=== PATIENT | female | born 1955 | race Caucasian/White ===

== ENCOUNTER 2023-04-08 08:56 | Day surgery (SDC) | payer OTHER, MEDICARE, SELFPAY ==
[2023-04-07 07:39] VITALS: BMI 20.8
[2023-04-08] VITALS (10 sets, daily range): BP systolic 98–146; BP diastolic 52–78; PULSE 59–80; RESP 11–17; TEMP 36.2–36.6; O2SAT 95–100; BMI 20.8; BMI 20.9
[2023-04-08] MEDS: LACTATED RINGERS 1,000 ML 100 ML IV ×4 (09:13→15:32)
--- NOTE | 2023-04-08 10:17 | PM.PREOP ---
Pre-operative Note COVID-19 Criteria for continued procedure: Delay expected to result in less-positive ultimate med/surg outcome Interval Note History & Physical reviewed/Exam performed by Physician: Yes Changes to H&P: No H&P completed within 30 days and has changed as indicated here:: 03/24/23
[2023-04-08] MEDS: CEFAZOLIN 2 GM/100 ML PREMIX 100 ML IV (11:04)
--- NOTE | 2023-04-08 11:14 | SUR.OPER ---
Lithotomy on padded OR bed, head on pillow, arms secured on padded arm boards at <90 degrees abduction. Legs secured in padded yellow fins stirrups.
[2023-04-08] MEDS: BUPIVACAINE 0.25% (PF) 30 ML, EPINEPHrine 0.15 MG INJ (11:19)
--- NOTE | 2023-04-08 13:10 | P.OP_ITS ---
Operative Date/Time/Diagnoses Date of procedure: 04/08/23 Time of procedure: 13:10 Pre-op diagnosis: Symptomatic cystocele and rectocele Post-op diagnosis: same Procedure & Clinicians Procedure: Procedures Operation Date: 04/08/23 10:45 Actual Procedure Side Surgeon p Anterior/Posterior repair Lorrie Ching MD Indications: Symptomatic cystocele and rectocele Surgeon: Lorrie Ching Ticket Machine Operator: Kriss Lake Anesthesia Type: General and Local Operative Notes Findings: Third degree cystocele Third degree rectocele Closure Type: primary Specimen(s): none Estimated blood loss (mL): 50 Blood products transfused: none Procedure in detail: 2 Allis clamps were placed at the apex of the cystocele. 6 mL of half percent Marcaine with epinephrine were injected and an incision was made with a #10 blade between the 2 Allis clamps. Wide Allis clamps were placed on the midline of the cystocele approximately 5. The mucosa was undermined using the Metzenbaum scissors and the mucosa incised in the midline moving the wide Allis clamps to the edges of the mucosa. The mucosa was dissected off the underlying fascia using an open moistened Ray-Angel Luis and a #10 blade. The fascia was reapproximated with 0 Vicryl with a series of horizontal mattress sutures. The excess vaginal mucosa was excised. The mucosa was closed using simple interrupted sutures with 2-0 Vicryl including the underlying fascia to close the space. The weighted speculum was removed from the vagina. Allis clamps were placed at the mucocutaneous junction at the introitus. 6 mL of half percent Marcaine with epinephrine were injected. An incision was made with a #10 blade between the 2 Allis clamps, and a triangular piece of skin and underlying subcutaneous tissue was removed. Allis clamps were placed in the midline of the rectocele. 10 mL of half percent Marcaine with epinephrine were injected submucosally. The mucosa was undermined using the Metzenbaum scissors and the mucosa incised in the midline, moving the wide Allis clamps to the mucosal edges. The underlying fascia was dissected off of th mucosa using an open moistened Ray-Angel Luis and a #10 blade. The fascia was reapproximated using 0 Vicryl with a series of horizontal mattress sutures. The excess vaginal mucosa was excised. The mucosa was closed using a series of simple interrupted sutures with 2-0 Vicryl including the underlying fascia to close the space. On the perineum 0 Vicryl was used to reapproximate the levator muscle. The subcutaneous layer was closed with 2-0 Vicryl. The skin was closed with 2-0 chromic in a subcuticular fashion. Hemostasis was achieved. A Betadine moistened vaginal pack was placed into the vagina. A rectal exam was done and there were no sutures palpable in the rectum. The urine was clear. Sponge, lap, and instrument counts were correct x-2. The patient tolerated the procedure well, was taken to PACU in stable condition.m Complications: none Post-operative Condition: stable Disposition: PACU Plan for aftercare: To acute care after recovery
[2023-04-08] MEDS: OXYCODONE IR 5 MG TABLET PO (16:30)
[2023-04-08] MEDS: ACETAMINOPHEN 325 MG TABLET 650 MG PO ×2 (16:31→20:14)
[2023-04-08] MEDS: KETOROLAC 30 MG/ML VIAL 15 MG IV ×2 (19:35→23:55)
--- NOTE | 2023-04-08 19:37 | PC.NURSE ---
Patient arrived from PACU at 1310 A&OX4, slightly sleepy, VSS, afebrile on RA. She reports pain well controlled. scant bleeding to pad. She tolerates dinner well and reports pain well controlled. LR at 100ml/hr. knowles in place draining adequate clear yellow urine.
[2023-04-08] MEDS: ONDANSETRON 4 MG/2 ML INJ IV (20:14)
[2023-04-08] MEDS: DOCUSATE 100 MG CAPSULE 200 MG PO (20:14)
[2023-04-09 00:06] VITALS: BP 108/48; PULSE 60; RESP 17; TEMP 36.5; O2SAT 93
[2023-04-09 06:14] VITALS: BP 124/67; PULSE 48; RESP 18; TEMP 37; O2SAT 97
[2023-04-09] MEDS: ONDANSETRON 4 MG/2 ML INJ IV (06:17)
[2023-04-09] MEDS: LEVOTHYROXINE 25 MCG TABLET PO (06:18)
[2023-04-09] MEDS: KETOROLAC 30 MG/ML VIAL 15 MG IV (06:18)
[2023-04-09 06:37] LABS: Add Manual Diff / Slide Review NO; Basophils Absolute Auto 0 /uL (0-100); Basophils Percent Auto 0.2 % (0-2); Eosinophils Absolute Auto 0 /uL (0-450); Eosinophils Percent Auto 0.1 % (2-4); Hematocrit 29.6 % (36-46); Hemoglobin 10.2 g/dL (12.0-16.0); Lymphocytes Absolute Auto 2200 /uL (1100-4500); Lymphocytes Percent Auto 23.3 % (25-40); Mean Corpuscular HGB Conc 34.6 % (30-36); Mean Corpuscular Volume 89.6 fL (80-100); Monocytes Absolute Auto 800 /uL (0-900); Monocytes Percent Auto 8.2 % (3-14); Neutrophils Absolute Auto 6300 /uL (1500-7000); Neutrophils Percent Auto 68.2 % (50-75); Platelet Count 168 X10^3/uL (150-400); Red Cell Distribution Width 14.1 % (11.6-14.8); White Blood Cell Count 9.2 X10^3/uL (4.5-11.0)
--- NOTE | 2023-04-09 07:00 | PC.NURSE ---
Hernandez catheter DC'd at 0555, vaginal packing removed. Packing held a moderate amount of sanguinous drainage, no bleeding or discharge observed immediately upon removal.
[2023-04-09] MEDS: DOCUSATE 100 MG CAPSULE 200 MG PO (08:36)
[2023-04-09] MEDS: ACETAMINOPHEN 325 MG TABLET 650 MG PO (08:36)
[2023-04-09 08:53] VITALS: BP 153/84; PULSE 72; RESP 16; TEMP 36.4; O2SAT 97
--- NOTE | 2023-04-09 09:30 | CM.DANOTE ---
DCP: Case received, EMR reviewed and met with patient. Introduced self and role. Was able to complete DCP assessment based upon information currently available. Patient is a 67 year old female who admitted yesterday morning to the care of Dr. Ching. PCP: Dr. Forde. Payer: confirmed: [facility]. Patient came to the hospital via private vehicle for a surgical procedure. Patient had anterior/posterior repair cystocele/rectocele. Met with patient in her room. She was sitting up in bed, pleasant, alert and oriented. Confirmed that she rersides in the [facility] area with spouse, Vincent. She is independent at baseline. Confirmed that her spouse will be picking her up when she is ready for discharge. P: DCP to continue to follow. Patient should be able to discharge, possibly today, after she is seen by provider. Marisol Martinez RN/Knockout Worker Discharge Planning/Care Management CM Discharge Assessment Start: 04/09/23 09:29 Freq: Status: Active Protocol: Document 04/09/23 09:29 (Rec: 04/09/23 09:30 [id number]) Discharge Planning Assessment Assigned Biodiesel Production Technician Marisol Martinez RN/Knockout Worker Advance Directives? No History Provided By Patient,Medical Record Prior Living Arrangements House Household Members spouse Type of transporation used prior to Drives own vehicle admit Independent with ADL's Yes Is patient alert and oriented? Yes Caregiver for Another No Barriers to Discharge No Discharge Plan Home Transportation Arrangement Spouse Referrals Initiated None needed Whiteboard Updated in Patient Room with Yes name and ext. # of Biodiesel Production Technician Review Status In Process Next Review Type Continued Stay Review Pre-Anesthesia Assessment Start: 04/07/23 07:38 Freq: Status: Complete Protocol: Document 04/07/23 07:39 [facility] (Rec: 04/07/23 07:58 [facility] [id number]) Pre-Anesthesia Assessment Patient Information Reviewed Via Chart Review Primary Care Provider Negro Forde Seen Specialist in Last 12 Months Yes Specialist Seen Food Writer Primary Language Guatemalan Flash Drier Operator Required No Height 5 ft 8 in Weight 137 lb Body Mass Index (BMI) 20.8 Barriers to Learning None Hx Anesthesia Reactions Yes: Articaine causes venous flushing/pruritis Anesthesia Review Requested No Head Bone Grinder No Smoking Status Never smoker History of Falling (Recent or History of No ) Patient is completely paralyzed or No completely immobile Mental Status Oriented to own ability Is patient on oxygen? No Hx Sleep Apnea No Currently Taking a Beta Hans No Anti-Coagulant Therapy No Cardiac Testing No Hx Pacemaker/ICD No Pacemaker Rep Required? No Cardiac Clearance Received Not Applicable Urinary Catheter Present No Hx Urinary Self Catheterization No Diabetes No Patient No Lactating No Presence of External or Internal Medical No Devices Marital Status Lives With spouse Patient Discharge Plan Description Return Home
--- NOTE | 2023-04-09 09:59 | PM.DS.1 ---
History of Present Illness History of Present Illness Date Patient Seen: 04/09/23 Time Patient Seen: 09:59 Chief complaint: Colporrhaphy Narrative: Post operative anterior and posterior repair and perineoplasty. The patient is doing well. She is ambulatory. She passed her bladder trial. Her pain is under control with Toradol and Tylenol. Discharge Providers Provider Discharge Date: 04/09/23 Primary care physician: Negro Forde Discharge provider: Kriss Lake MD, Dr. Nelli Ching Summary Hospital Course Discharge Diagnosis: Symptomatic cystocele and rectocele with gaping introitus Hospital Course: Patient underwent an anterior and posterior repair with perineoplasty on 04/08/2023. Patient is doing well. She passed her bladder trial. Status at Discharge Cognitive/behavioral status at discharge: oriented Functional status at discharge: independent ambulation Overall status at discharge: patient is progressing back to baseline Time Spent with Patient Time spent: Less than 30 minutes Exam Vital Signs (past 8 hours): - 04/09/23 06:14 04/09/23 08:53 Temperature 98.6 F 97.5 F L Pulse Rate 48 L 72 Respiratory Rate 18 16 Blood Pressure 124/67 153/84 H Pulse Oximetry 97 97 Oxygen Flow Rate 0 Oxygen Delivery Method Room Air Oxygen Flow Rate 0 Narrative Exam Narrative: Patient's abdomen is soft, nontender. Minimal vaginal bleeding. Extremities without edema and nontender. Objective Labs 04/09/23 06:20 Labs: Laboratory Results - last 24 hr 04/09/23 06:20 WBC 9.2 RBC 3.30 L Hgb 10.2 L Hct 29.6 L MCV 89.6 MCH 31.0 MCHC 34.6 RDW 14.1 Plt Count 168 Neut % (Auto) 68.2 Lymph % (Auto) 23.3 L Bandera % (Auto) 8.2 Eos % (Auto) 0.1 L Baso % (Auto) 0.2 Neut # (Auto) 6300 Lymph # (Auto) 2200 Bandera # (Auto) 800 Eos # (Auto) 0 Baso # (Auto) 0 PFSH Medical History (Updated 03/24/23 @ 10:59 by Lorrie Ching MD) Actinic keratosis Adenomatous endometrial hyperplasia Basal cell carcinoma (BCC) of left ear (2014) Colon polyps (2006) H/O echocardiogram Hypothyroidism Lymphedema (11/2014) Pelvic floor dysfunction (~2021) Rosacea Wears glasses Surgical History (Updated 06/28/18 @ 15:54 by Alejandra Ferguson) Anesthesia complication History of colonoscopy with polypectomy (2006) Status post hernia repair (1999) Status post hernia repair (2012) Status post hernia repair (2013) Status post hysteroscopy Family History (Updated 12/31/22 @ 21:13 by Beverley Young) Father CVA (cerebral vascular accident) Grandfather CVA (cerebral vascular accident) Grandmother CVA (cerebral vascular accident) Mother Congestive heart failure Grandfather NC (myocardial infarction) Grandmother Diabetes mellitus PVD (peripheral vascular disease) Brother History of heart disease Hyperlipidemia Hypertension Cardiac pacemaker Social History household members: spouse Smoking Status: Never smoker alcohol intake: current Discharge Assessment & Plan Assessment and Plan Assessment: Postoperative anterior and posterior repair with perineoplasty Plan of Treatment: Patient was discharged home. Precautions for infection, difficulty urinating, pain reviewed. Lifting precautions and nothing in the vagina reviewed with the patient. Discharge Plan Discharge Plan Patient Disposition: Home Provider Discharge Comment: Pt will take tylenol and motrin for pain. Stool softeners and laxatives as needed. Pt. should get OTC iron due to anemia. Discharge orders & Medications Discharge Orders: Discharge (Order); Ordered 04/09/23 Ordered By: Kriss Lake Prescriptions: Continued levothyroxine [Synthroid] 25 mcg tablet 25 mcg PO DAILY Follow up/Referrals: Lorrie Ching MD [Physician] - 1 Week (pt scheduled for 1 week telehealth and 6 week postop check) Negro Forde MD [Primary Care Provider] - Diet/Activity/Treatments Diet: Regular Activity: nothing in vagina for 6 weeks, do not lift over 10 pounds for 6 weeks Skin/Wound/Dressing Care Report to your healthcare provider any signs of infection, such as:: chills, fever and increased pain Visit Report/Discharge Packet Stand Alone Forms: Patient Portal/API, Surgery Discharge Discharge Data Primary Care Provider: Negro Forde Attending Provider: Lorrie Ching Quality VTE Deep Vein Thrombosis/Pulmonary Embolism Present on Admission: No
--- NOTE | 2023-04-09 11:52 | PC.NURSE ---
Day shift: Discharge instructions discussed with patient and patient's spouse. All questions answered and patient stated understanding. Patient able to void 450mL in the toilet after cathetar was removed early this AM. Post void residual done per MD Ching's request. Post void was 7mL. Notified MD Ching. Patient discharged via wheelchair. Chencho Chen escorted patient and patient's spouse to the exit.
== END 2023-04-09 11:30 | disposition home or self-care (01) ==
LOC: OR 08:59 → AC 12:35
PROVIDERS: PCP Family Medicine; Referring Provider Obstetrics & Gynecology; Visit Provider Obstetrics & Gynecology
PROC: (CPT 57260; principal; 2023-04-08 10:45)
DX: N81.10 Cystocele, unspecified (principal); N81.6 Rectocele
CPT/HCPCS: 57260; 85025; J0171; J0690; J1100; J1170; J1885; J2250; J2405; J2704; J3010; J3490